=== PATIENT | male | born 1985 | race Caucasian/White ===

== ENCOUNTER 2021-07-09 21:37 | Emergency (ER) | payer BC, MEDICAID, OTHER ==
[~2021-07-09] VITALS: Ht 182.9 cm; Wt 97.5 kg
[2021-07-09 22:35] VITALS: BP 150/94
--- NOTE | 2021-07-09 23:02 | NUR ---
AT BED SIDE
[2021-07-09] MEDS ORDERED: FLUORESCEIN SODIUM OPHTH 1 EA STRIP ONE (23:07)
[2021-07-09] MEDS ORDERED: OFLO5DRO6 RIGHTEYE (23:14)
== END 2021-07-09 23:18 | disposition home or self-care (01) ==
LOC: ER 21:40
DX: S05.01XA Injury of conjunctiva and corneal abrasion without foreign body, right eye, initial encounter (principal); Z90.89 Acquired absence of other organs; Z79.899 Other long term (current) drug therapy; W50.4XXA Accidental scratch by another person, initial encounter; Y93.89 Activity, other specified; Y92.89 Other specified places as the place of occurrence of the external cause; Y99.8 Other external cause status